=== PATIENT | female | born 1965 | race African-American/Black ===

== ENCOUNTER 2016-11-10 09:17 | Outpatient (CLI) | payer BC | END 2016-11-10 09:18 | LOC: NAVSJIPCSP 09:17 | PROVIDERS: ATTEND Internal Medicine | DX: E78.5 Hyperlipidemia, unspecified (principal) | CPT/HCPCS: 36415; 80061 ==

== ENCOUNTER 2017-01-27 11:53 | Outpatient (CLI) | payer BC ==
--- NOTE | 2017-01-27 12:48 | RAD ---
THREE VIEWS OF THE LEFT SHOULDER: COMPARISON: None. HISTORY: Left shoulder pain after moving furniture. FINDINGS: Three views of the left shoulder show no evidence of acute fracture or dislocation. No degenerative changes are seen. There is calcification/ossification overlying the insertion of the rotator cuff which may represent calcific tendinopathy. IMPRESSION: 1. No evidence of acute osseous abnormality. 2. Calcific tendinopathy at the insertion site of the rotator cuff. POS: NO
== END 2017-01-27 11:54 | disposition home or self-care (01) ==
LOC: NAV RAD 11:53
PROVIDERS: ATTEND Internal Medicine
DX: M25.512 Pain in left shoulder (principal); M75.30 Calcific tendinitis of unspecified shoulder

== ENCOUNTER 2017-04-28 09:21 | Outpatient (CLI) | payer BC ==
[2017-04-28 12:02] LABS: Cardiac Risk 6.1 (Less than 4.5)
== END 2017-04-28 09:22 | disposition home or self-care (01) ==
LOC: NAVSJIPCSP 09:21
PROVIDERS: ATTEND Internal Medicine
DX: E78.5 Hyperlipidemia, unspecified (principal)
CPT/HCPCS: 36415; 80061